=== PATIENT | male | born 1980 | race Caucasian/White ===

== ENCOUNTER 2021-04-30 23:18 | Emergency (ER) | payer BC, OTHER ==
[2021-05-01] MEDS ORDERED: Lidocaine 1% w/Epinephrine 1:100K 20 ML VIAL ONE (01:35)
[2021-05-01] MEDS ORDERED: Bacitracin 1 PK ONE (01:35)
== END 2021-05-01 02:12 | disposition home or self-care (01) ==
LOC: ERS 23:18
DX: S01.511A Laceration without foreign body of lip, initial encounter (principal); W22.8XXA Striking against or struck by other objects, initial encounter; E11.9 Type 2 diabetes mellitus without complications; Z79.899 Other long term (current) drug therapy; Z79.84 Long term (current) use of oral hypoglycemic drugs
CPT/HCPCS: 12011